=== PATIENT | male | born 1985 | race American Indian/Alaskan Native ===

== ENCOUNTER 2018-08-03 01:47 | Observation (INO) | payer SELFPAY ==
[2018-08-03] MEDS ORDERED: NACL 0.9% 1000 ML 1,000 ML IV ONE (03:01)
--- NOTE | 2018-08-03 03:06 | Emergency Department Report ---
HPI - General Chief Complaint: Headache Time Seen by Provider: 08/03/18 02:51 - HPI HPI: Room 17 The patient is a 32-year-old male presenting with a chief complaint of shortness of breath and chest pain. The patient states 7 days ago he took one time dose of MDMA. The patient states for the past 7 days he's had palpitations chest pain and shortness of breath. Patient states his shortness of breath has been worsening. The patient states he gets short of breath with any type of movement. Patient denies pleurisy or cough. Patient admits to one episode of nausea and vomiting. Patient denies fever. Today while standing the patient states begins to light headed, had a headache develop some tremors. The patient states he felt as though it is going to pass out sensation lasted approximately 30 minutes. Patient states feels as though his heart is racing and he also has intermittent burning chest pain. The patient denies any flights or long car trips just prior to the onset of symptoms but he states approximately 2-3 days ago he went on a 3.5-4 hour flight Location: Chest Duration: 7 days Quality: Burning Severity: Moderate Modifying factors: [see above] Context: [see above] Mode of transportation: [not driving] ED Past Medical Hx - Past Medical History Previous Medical History?: No - Surgical History Past Surgical History?: No - Family History Family history: no significant - Social History Smoking Status: Never Smoker Substance Use Type: Marijuana, Other (MDMA) ED Review of Systems ROS: Stated complaint: RAMBO DIZZINESS HEAD PAIN SHAKING Other details as noted in HPI Constitutional: denies: fever Eyes: denies: eye pain ENT: denies: throat pain Respiratory: shortness of breath, SOB with exertion Cardiovascular: chest pain, palpitations Endocrine: no symptoms reported Gastrointestinal: nausea, vomiting Genitourinary: denies: dysuria Musculoskeletal: denies: back pain Neurological: denies: headache Physical Exam - Physical Exam Vital Signs: Vital Signs 08/03/18 08/03/18 01:52 01:57 Temperature 97.7 F 97.7 F Pulse Rate 114 H 118 H Respiratory 18 18 Rate Blood Pressure 149/85 149/85 O2 Sat by Pulse 100 100 Oximetry Physical Exam: GENERAL: The patient is well-developed well-nourished male sitting on bed. [] HEENT: Normocephalic. Atraumatic. Extraocular motions are intact. Patient has moist mucous membranes. NECK: Supple. Trachea midline CHEST/LUNGS: Clear to auscultation. There is no respiratory distress noted. HEART/CARDIOVASCULAR: Regular. There is tachycardia. There is no gallop rub or murmur. ABDOMEN: Abdomen is soft, nontender. Patient has normal bowel sounds. There is no abdominal distention. SKIN: There is no rash. There is no edema. There is no diaphoresis. NEURO: The patient is awake, alert, and oriented. The patient is cooperative. The patient has normal speech MUSCULOSKELETAL: There is no evidence of acute injury. ED Course Vital Signs 08/03/18 08/03/18 01:52 01:57 Temperature 97.7 F 97.7 F Pulse Rate 114 H 118 H Respiratory 18 18 Rate Blood Pressure 149/85 149/85 O2 Sat by Pulse 100 100 Oximetry - Reevaluation(s) Reevaluation #1: 08/03/18 04:11 Patient states he feels unchanged ED Medical Decision Making - Lab Data Result diagrams: 08/03/18 03:16 08/03/18 03:16 Laboratory Tests 08/03/18 08/03/18 08/03/18 03:16 03:16 03:16 WBC 4.2 L RBC 4.84 Hgb 14.3 Hct 42.9 MCV 89 MCH 30 MCHC 33 RDW 14.2 Plt Count 173 Lymph % (Auto) 29.3 [place] % (Auto) 14.4 H Eos % (Auto) 2.1 Baso % (Auto) 0.5 Lymph # 1.2 [place] # 0.6 Eos # 0.1 Baso # 0.0 Seg Neutrophils % 53.7 Seg Neutrophils # 2.3 D-Dimer 135.00 Sodium 140 Potassium 3.8 Chloride 101.6 Carbon Dioxide 26 Anion Gap 16 BUN 11 Creatinine 1.2 Estimated GFR > 60 BUN/Creatinine Ratio 9 Glucose 140 H Calcium 9.5 Total Creatine Kinase 243 H CK-MB (CK-2) 1.7 CK-MB (CK-2) Rel Index 0.6 Troponin T NT-Pro-B Natriuret Pep TSH Free T4 Urine Opiates Screen Urine Methadone Screen Ur Barbiturates Screen Ur Phencyclidine Scrn Ur Amphetamines Screen U Benzodiazepines Scrn Urine Cocaine Screen U Marijuana (THC) Screen Drugs of Abuse Note 08/03/18 08/03/1819 03:16 03:16 Unknown WBC RBC Hgb Hct MCV MCH MCHC RDW Plt Count Lymph % (Auto) [place] % (Auto) Eos % (Auto) Baso % (Auto) Lymph # [place] # Eos # Baso # Seg Neutrophils % Seg Neutrophils # D-Dimer Sodium Potassium Chloride Carbon Dioxide Anion Gap BUN Creatinine Estimated GFR BUN/Creatinine Ratio Glucose Calcium Total Creatine Kinase CK-MB (CK-2) CK-MB (CK-2) Rel Index Troponin T < 0.010 NT-Pro-B Natriuret Pep 26.56 TSH 0.874 Free T4 1.13 Urine Opiates Screen Presumptive negative Urine Methadone Screen Presumptive negative Ur Barbiturates Screen Presumptive negative Ur Phencyclidine Scrn Presumptive negative Ur Amphetamines Screen Presumptive negative U Benzodiazepines Scrn Presumptive negative Urine Cocaine Screen Presumptive negative U Marijuana (THC) Screen Presumptive positive Drugs of Abuse Note Disclamer - EKG Data -: EKG Interpreted by Me EKG shows normal: sinus rhythm Rate: tachycardia (113 bpm) - EKG Data When compared to previous EKG there are: previous EKG unavailable Interpretation: other (no ischemic changes seen) - Radiology Data Radiology results: report reviewed (chest x-ray), image reviewed (chest x-ray) interpreted by me: Chest x-ray-no focal infiltrate, no pneumothorax [facility] [address] [place] [address] XRay Report Signed Patient: DONNY OTOOLE MR#: [id number] : 1985 Acct:[id number] Age/Sex: 32 / M ADM Date: 08/03/18 Loc: ED Attending Dr: Ordering Physician: VIBHA NASCIMENTO MD Date of Service: 08/03/18 Procedure(s): XR chest 1V ap Accession Number(s): [id number] cc: VIBHA NASCIMENTO MD Fluoro Time In Minutes: PROCEDURE: XR CHEST 1V AP TECHNIQUE: Chest radiograph single view. HISTORY: shortness of breath COMPARISONS: None . FINDINGS: Heart: Normal. Mediastinum/Vessels: Normal. Lungs/Pleural space: Normal. Bony thorax: No acute osseous abnormality. Life support devices: None. IMPRESSION: No acute cardiopulmonary abnormality. This document is electronically signed by Trupti Ellis DO., August 03 2018 03:18:39 AM ET Transcribed By: [facility] Dictated By: TRUPTI ELLIS MD Electronically Authenticated By: TRUPTI ELLIS MD Signed Date/Time: 08/03/18319 DD/ 3 TD/TT: 08/03/18313 - Differential Diagnosis PE, ACS, hyperthyroidism, anxiety, vasospasm Critical care attestation.: If time is entered above; I have spent that time in minutes in the direct care of this critically ill patient, excluding procedure time. ED Disposition Clinical Impression: Chest pain, Shortness of breath Disposition: OP ADMIT IP TO THIS HOSP Is pt being admited?: Yes Does the pt Need Aspirin: Yes Condition: Fair Instructions: Chest Pain (ED) Referrals: DARRELL JIMENES MD [Primary Care Provider] - 3-5 Days Time of Disposition: 04:12 (hospitalist paged (Dr. Jacque Cartagena)
[2018-08-03 03:08] LABS: Amphetamine Screen,Urine PRESUMPTIVE NEGATIVE; Benzodiazepines Screen,Urine PRESUMPTIVE NEGATIVE; Cocaine Screen,Urine PRESUMPTIVE NEGATIVE; Methadone Screen,Urine PRESUMPTIVE NEGATIVE; Opiate Screen,Urine PRESUMPTIVE NEGATIVE
--- NOTE | 2018-08-03 03:20 | XRay Report ---
PROCEDURE: XR CHEST 1V AP TECHNIQUE: Chest radiograph single view. HISTORY: shortness of breath COMPARISONS: None . FINDINGS: Heart: Normal. Mediastinum/Vessels: Normal. Lungs/Pleural space: Normal. Bony thorax: No acute osseous abnormality. Life support devices: None. IMPRESSION: No acute cardiopulmonary abnormality. This document is electronically signed by Trupti Ellis DO., August 03 2018 03:18:39 AM ET
[2018-08-03 03:23] LABS: Cannabinoid Screen,Urine PRESUMPTIVE POSITIVE
[2018-08-03 03:33] LABS: Basophils % (Auto) 0.5 % (0.0-1.8); Eosinophils # (Auto) 0.1 K/mm3 (0.0-0.4); Eosinophils % (Auto) 2.1 % (0.0-4.3); Hematocrit 42.9 % (35.5-45.6); Hemoglobin 14.3 gm/dl (11.8-15.2); Lymphocytes # (Auto) 1.2 K/mm3 (1.2-5.4); Lymphocytes % (Auto) 29.3 % (13.4-35.0); Mean Corpuscular HGB Conc 33 % (32-34); Mean Corpuscular Volume 89 fl (84-94); Monocytes # (Auto) 0.6 K/mm3 (0.0-0.8); Monocytes % (Auto) 14.4 % (0.0-7.3); Platelet Count 173 K/mm3 (140-440); Red Blood Count 4.84 M/mm3 (3.65-5.03); Red Cell Distribution Width 14.2 % (13.2-15.2)
[2018-08-03 04:01] LABS: Creatine Kinase MB 1.7 ng/mL (0.0-4.0)
[2018-08-03 04:02] LABS: BUN/Creatinine Ratio 9; Blood Urea Nitrogen 11 mg/dL (9-20); Calcium 9.5 mg/dL (8.4-10.2); Hemolysis Index 13
[2018-08-03 04:06] LABS: Free T4 (Free Thyroxine) 1.13 ng/dL (0.76-1.46)
[2018-08-03] MEDS ORDERED: PERCOCET 5/325 PO PRN (05:44)
--- NOTE | 2018-08-03 08:06 | History and Physical Report ---
History of Present Illness Date of examination: 08/03/18 Date of admission: 08/03/18 05:44 Chief complaint: Headache shortness of breath and chest pain History of present illness: 32-year-old Male patient with no significant past medical history, reported to have used marijuana and MDMA Attention to the emergency room with headache shortness of breath and chest janet n. Patient has no previous history of coronary artery disease or cardiac symptoms not on any medications Initial workup first set of cardiac enzymes negative EKG nonacute ST-T changes, mild elevation of CK Denies nausea vomiting or abdominal pain Headache and dizziness. Improved at the time of my evaluation Past History Past Medical History: No medical history Past Surgical History: No surgical history Social history: other (recreational drug use,Marijuana,MDMA) Family history: hypertension Medications and Allergies Allergies Allergy/AdvReac Type Severity Reaction Status Date / Time No Known Allergies Allergy Unverified 08/03/18 02:00 Home Medications Medication Instructions Recorded Confirmed Last Taken Type ALBUTEROL Inhaler(NF) [VENTOLIN 1 puff IH QID PRN #1 inha 08/03/18 Unknown Rx Inhaler(NF)] Famotidine [Pepcid] 20 mg PO BID #20 tablet 08/03/18 Unknown Rx Active Meds: Active Medications Oxycodone/Acetaminophen (Percocet 5/325) 1 tab PO Q6H PRN PRN Reason: Pain, Moderate (4-6) Review of Systems Constitutional: no weight loss, no weight gain, no fever, no chills Cardiovascular: chest pain, shortness of breath, no orthopnea, no palpitations, no edema Respiratory: no cough, no excessive sputum Gastrointestinal: no abdominal pain, no nausea, no vomiting Genitourinary Male: no dysuria, no flank pain Musculoskeletal: no myalgias, no arthritis Integumentary: no rash, no lesions Neurological: no weakness, no parathesias, no syncope Psychiatric: no anxiety, no depression Endocrine: no cold intolerance, no heat intolerance, no polydipsia, no polyuria Hematologic/Lymphatic: no easy bruising, no easy bleeding Allergic/Immunologic: no urticaria, no allergic rhinitis Exam - Constitutional Vitals: Temp Pulse Resp BP Pulse Ox 98.4 F 83 18 127/73 100 08/03/18 07:08 08/03/18 07:00 08/03/18 07:08 08/03/18 07:08 08/03/18 06:30 General appearance: Present: no acute distress, well-nourished - EENT Eyes: Present: PERRL, EOM intact - Neck Neck: Present: supple, normal ROM - Cardiovascular Rhythm: regular Heart Sounds: Present: S1 & S2 - Extremities Extremities: no ischemia, pulses intact Extremity abnormal: edema, cyanosis - Abdominal General gastrointestinal: Present: soft, non-tender, non-distended, normal bowel sounds - Integumentary Integumentary: Present: clear, warm - Musculoskeletal Musculoskeletal: strength equal bilaterally - Psychiatric Psychiatric: appropriate mood/affect, cooperative - Neurologic Neurologic: moves all extremities Results - Labs CBC & Chem 7: 08/03/18 03:16 08/03/18 03:16 Labs: Abnormal lab results 08/03/18 08/03/18 Range/Units 03:16 03:16 WBC 4.2 L (4.5-11.0) K/mm3 [place] % (Auto) 14.4 H (0.0-7.3) % Glucose 140 H (75-100) mg/dL Total Creatine Kinase 243 H (55-170) units/L Assessment and Plan - Patient Problems (1) Chest pain Current Visit: Yes Status: Acute Plan to address problem: Atypical chest pain; probably secondary to drug use Procedure cardiac enzymes, EKG, echocardiogram, possible stress test (2) Shortness of breath Current Visit: Yes Status: Acute Plan to address problem: Probably drug-induced, oxygen and supportive care (3) Substance abuse Current Visit: Yes Status: Acute Plan to address problem: Patient consult and advised to quit recreational drug use Verbalized understanding (4) DVT prophylaxis Current Visit: Yes Status: Acute Plan to address problem: SCD and Lovenox Monitor patient closely and adjust the management as needed (5) Tobacco abuse Current Visit: Yes Status: Acute Plan to address problem: Smoking cessation counselling, advised to quit tobacco use
[2018-08-03] MEDS ORDERED: MORPHINE IV PRN (08:13)
[2018-08-03 09:38] LABS: Creatine Kinase MB 1.5 ng/mL (0.0-4.0)
[2018-08-03 09:40] LABS: Chol/HDL Ratio 3.09 %
[2018-08-03] MEDS ORDERED: PEPCID PO SCH (10:00)
[2018-08-03] MEDS ORDERED: COREG PO SCH (10:00)
[2018-08-03] MEDS ORDERED: ASPIRIN PO SCH (10:00)
[2018-08-03] MEDS ORDERED: LEXISCAN IV ONE ×2 (10:39→10:42)
[2018-08-03] MEDS ORDERED: PROAIR IH PRN (14:24)
[2018-08-03] MEDS ORDERED: PROVENTIL IH PRN (14:29)
--- NOTE | 2018-08-03 15:34 | Discharge Summary ---
Providers - Providers Date of Admission: 08/03/18 05:44 Date of discharge: 08/03/18 Attending physician: ARTI NOLAN Primary care physician: [facility], Hospitalization Reason for admission: shortness of breath and atypical chest pain after using MDMA Condition: Fair Pertinent studies: Chest x-ray; no acute abnormality noted Stress test; negative for reversible ischemia, normal LV function[preliminary report by cardiology Fur Blower] Hospital course: 32-year-old male patient with no significant past medical history reported to have used marijuana and MDMA was admitted through emergency room with headache shortness of breath and atypical chest pain. The patient was admitted, symptomatically managed underwent stress test which was negative for reversible ischemia and normal LV function, Symptoms significantly improved and continues to have mild shortness of breath However, lungs, clear on examination, chest x-ray, normal, and resting and ambulatory O2 sats more than 94% Patient counseled to quit recreational drug use, counseled smoking cessation, Verbalized understanding Today he is comfortable in no new complaints except for mild shortness of breath Vital signs reviewed, Physical examination is unremarkable Hemodynamically and clinically stable for discharge Follow-up with cardiology as needed Patient also advised to see private ui designer should he have recurrent shortness of breath, for further evaluation with pulmonary function tests. Patient is hemodynamically stable at discharge Discharge diagnosis; --Shortness of breath; chest x-ray negative, clinical exam of the chest is normal O2 sats resting and ambulatory room air, more than 95% Albuterol inhaler as needed, advised to see primary ui designer for further evaluation --Atypical chest pain; probably secondary to MDMA use Stress test negative, normal LV function --History of substance abuse; MDMA, marijuana Strongly advised to quit recreational drugs --Ongoing tobacco use; advised to quit tobacco use Disposition: DC-01 TO HOME OR SELFCARE Time spent for discharge: 32 min Core Measure Documentation - Palliative Care Palliative Care/ Comfort Measures: Not Applicable - Core Measures Any of the following diagnoses?: none Exam - Constitutional Vitals: Temp Pulse Resp BP Pulse Ox 98.4 F 84 18 135/82 98 08/03/18 07:08 08/03/18 13:17 08/03/18 08:13 08/03/18 13:17 08/03/18 13:26 General appearance: Present: no acute distress, well-nourished - EENT Eyes: Present: PERRL, EOM intact - Neck Neck: Present: supple, normal ROM - Respiratory Respiratory effort: normal Respiratory: bilateral: diminished, negative: rales, rhonchi, wheezing - Cardiovascular Rhythm: regular Heart Sounds: Present: S1 & S2 - Extremities Extremities: no ischemia, No edema - Abdominal General gastrointestinal: Present: soft, non-tender, non-distended, normal bowel sounds - Integumentary Integumentary: Present: clear, warm - Musculoskeletal Musculoskeletal: strength equal bilaterally - Psychiatric Psychiatric: appropriate mood/affect, cooperative - Neurologic Neurologic: CNII-XII intact, moves all extremities Plan Activity: no restrictions Diet: regular Additional Instructions: Advised to see private ui designer, for further evaluation if no improvement of symptoms Follow up with: DARRELL JIMENES MD [Primary Care Provider] - 3-5 Days BLACK CHRISTINE MD [Staff Physician] - 7 Days Prescriptions: Famotidine [Pepcid] 20 mg PO BID #20 tablet ALBUTEROL Inhaler(NF) [VENTOLIN Inhaler(NF)] 1 puff IH QID PRN #1 inha PRN Reason: Shortness Of Breath
[2018-08-03 15:46] LABS: Creatine Kinase MB 1.2 ng/mL (0.0-4.0)
[2018-08-03 16:46] VITALS: BP 131/87
--- NOTE | 2018-08-07 00:40 | Treadmill Report ---
PHARMACOLOGICAL NUCLEAR MYOCARDIAL PERFUSION IMAGING REPORT The patient underwent pharmacological stress testing using IV Lexiscan injection. The patient received resting myocardial perfusion imaging using technetium pyrophosphate, Tetrofosmin followed by post-vasodilation. Perfusion images and gated study using the same agent. Following findings were noted. Post-vasodilation images showed normal perfusion in all the segments. Similarly resting images showed normal perfusion. Post-vasodilation, gated study showed normal size left ventricle with normal wall motion thickening. Ejection fraction was calculated to be 73%. Transient ischemic dilation ratio was found to be 0.85. FINAL IMPRESSION: 1. Normal myocardial perfusion scan without any evidence of ischemia. 2. Normal left ventricular systolic function, calculated ejection fraction was 73%. 3. This is a low-risk study for future cardiac events. JOB# [id number] MONISHA/KARI
== END 2018-08-03 17:09 | disposition home or self-care (01) ==
LOC: ED 01:47 → 4A 05:44
PROVIDERS: ADMIT Internal Medicine; ATTEND Internal Medicine
DX: R07.89 Other chest pain (principal); R06.02 Shortness of breath; R11.2 Nausea with vomiting, unspecified; F19.10 Other psychoactive substance abuse, uncomplicated; F17.200 Nicotine dependence, unspecified, uncomplicated; Z82.49 Family history of ischemic heart disease and other diseases of the circulatory system
CPT/HCPCS: 36415; 71045; 78452; 80048; 80061; 80307; 82550; 82553; 83880; 84439; 84443; 84484; 85025; 85379; 93005; 93010; 93017; 93306; 94760; 96360; 99284; 99406; A9502; G0378; J2785; J7030